=== PATIENT | female | born 1980 | race Caucasian/White ===

== ENCOUNTER → 2024-12-15 | Outpatient (CLI) | payer BC ==
[2024-12-15 10:12] LABS: Partial Thromboplastin Time 25.8 sec (22.0-30.0); Prothrombin Time 10.8 sec (10.0-12.5)
[2024-12-15 15:34] LABS: % Iron Saturation 19.45 (12.00-45.00); ALT 26 U/L (8-44); AST 25 U/L (13-35); Albumin 4.1 g/dL (3.8-4.9); Albumin/Globulin Ratio 1.46 Ratio (1.60-3.17); Alkaline Phosphatase 79 U/L (41-126); Blood Urea Nitrogen 12.8 mg/dL (9.0-27.0); Calcium 9.4 mg/dL (8.7-10.3); Carbon Dioxide 23.9 mmol/L (21.6-31.8); Chloride 105 mmol/L (96-109); Chol/HDL Ratio 3.42 Ratio; Globulin 2.8 g/dL (1.6-3.3); Glucose 123 mg/dL (70-110); Iron 71 UG/DL (50-170); LDL Cholesterol,Calculated 88.8 mg/dL (0.0-131.0); Phosphorus 3.5 mg/dL (2.4-5.1); Sodium 141 mmol/L (135-145); Total Bilirubin 0.4 mg/dL (0.3-1.2); Total Iron Binding Capacity 365 UG/DL (228-460); Total Protein 6.9 g/dL (6.2-8.2)
[2024-12-15 15:57] LABS: HCT 44.2 % (37.2-46.3); HGB 14.6 g/dL (12.0-15.0); MCH 28.9 pg (27.0-32.0); MCV 87.5 FL (80.0-97.0); Mean Platelet Volume 10.9 FL (9.5-12.2); NRBC Per 100 WBC 0 X 10*3/uL (0.00-0.01); Platelet Count 397 X 10*3/uL (140-440); RBC 5.05 X 10*6/uL (4.10-5.20); RDW 12.9 % (11.5-14.5); WBC 8.61 X 10*3/uL (4.50-10.00)
[2024-12-15 17:09] LABS: Prealbumin 18.4 mg/dL (18.0-42.0)
[2024-12-15 18:42] LABS: Urine Alcohol Negative (Negative); Urine Barbiturate Negative (Negative); Urine Cocaine Negative (Negative); Urine Methadone Negative (Negative); Urine Opiates Negative (Negative); Urine Phencyclidine Negative (Negative)
[2024-12-16 12:13] LABS: Zinc, Serum 75 ug/dL (60-130)
[2024-12-17 07:29] LABS: Vit B1(Thiamine) 73 ug/L (38-122)
== END | disposition home or self-care (01) ==
LOC: LABWHC1 09:11
PROVIDERS: ATTEND Surgery Plastic and Reconstructive Surgery
DX: E55.9 Vitamin D deficiency, unspecified (principal); E89.1 Postprocedural hypoinsulinemia; D50.8 Other iron deficiency anemias; E66.01 Morbid (severe) obesity due to excess calories; E44.0 Moderate protein-calorie malnutrition; E45 Retarded development following protein-calorie malnutrition; K74.1 Hepatic sclerosis; D50.9 Iron deficiency anemia, unspecified; N19 Unspecified kidney failure; K50.90 Crohn's disease, unspecified, without complications; T56.894A Toxic effect of other metals, undetermined, initial encounter; Z68.42 Body mass index [BMI] 45.0-49.9, adult
CPT/HCPCS: 36415; 80053; 80061; 80306; 80323; 82306; 82525; 82607; 82728; 82746; 83036; 83540; 83550; 83735; 83970; 84100; 84134; 84255; 84425; 84443; 84590; 84630; 85027; 85610; 85730; 93005

== ENCOUNTER 2024-12-27 09:57 | Day surgery (SDC) | payer BC ==
--- NOTE | 2024-12-27 08:08 | P.GSHP ---
History of Present Illness H&P Date: 12/27/24 CHIEF COMPLAINT: GERD and colon screen HISTORY OF PRESENT ILLNESS: The patient is a 44-year-old female who presents with gastroesophageal reflux disease and need for colon screen. Upper and lower endoscopy were offered for further evaluation and management. PAST MEDICAL HISTORY: Please see list. PAST SURGICAL HISTORY: Please see list. MEDICATIONS: Please see list. ALLERGIES: Please see list. SOCIAL HISTORY: No illicit drug use FAMILY HISTORY: No reports of Crohn disease or ulcerative colitis. REVIEW OF ORGAN SYSTEMS: CONSTITUTIONAL: No reports of fevers or chills. GI: Denies any blood in stools or constipation. PHYSICAL EXAM: VITAL SIGNS: Stable GENERAL: Well-developed pleasant in no acute distress. HEENT: No scleral icterus. Extraocular movements grossly intact. Moist buccal mucosa. NECK: Supple without lymphadenopathy. CHEST: Unlabored respirations. Equal bilateral excursions. CARDIOVASCULAR: Regular rate and rhythm. Distal 2+ pulses. ABDOMEN: Soft, nondistended. MUSCULOSKELETAL: No clubbing, cyanosis, or edema. ASSESSMENT: 1. Gastroesophageal reflux disease 2. Colon screen. PLAN: 1. Recommend proceeding with an upper and lower endoscopy Past Medical History Past Medical History: Asthma, Diabetes Mellitus, Fibromyalgia, GERD/Reflux, Musculoskeletal Disorder, Osteoarthritis (OA) Additional Past Medical History / Comment(s): PCOS, diet controlled diabetes, vision issues rt eye. mucousy stools recently, intermittent sciatic pain History of Any Multi-Drug Resistant Organisms: None Reported Past Surgical History: Section, Uterine Ablation Additional Past Surgical History / Comment(s): c-sectionx2, Uterine ablationx3, D&Cx2 Past Anesthesia/Blood Transfusion Reactions: No Reported Reaction Smoking Status: Former smoker - Past Family History Mother Family Medical History: Cancer Additional Family Medical History / Comment(s): breast cax2 with mastectomy, lymphatic, uterine and cervical and melanoma, stroke, cerebral palsy Sister(s) Family Medical History: Diabetes Mellitus, Thyroid Disorder Father Additional Family Medical History / Comment(s): Polio as child-muscle disorder from Medications and Allergies Home Medications Medication Instructions Recorded Confirmed Type Ergocalciferol [Vitamin D2 (1250 50,000 unit PO WEEKLY 12/23/24 12/24/24 History Mcg = 13108 Iu)] Multivitamins, Thera [Multivitamin 1 tab PO DAILY 12/24/24 12/24/24 History (formulary)] Allergies Allergy/AdvReac Type Severity Reaction Status Date / Time bee venom protein (honey bee) Allergy Anaphylaxis Verified 12/24/24 10:06 diphenhydramine Allergy Rash/Hives Verified 12/24/24 10:06 [From Triaminic Allergy] peach Allergy Anaphylaxis Verified 12/24/24 10:06
[2024-12-27 10:23] VITALS: TEMP 97.3
[2024-12-27] MEDS: LACTATED RINGERS 1,000 ML IV SCH (10:38)
[2024-12-27] MEDS: IV FLUID CONTINUATION 1,000 ML IV ONE ×2 (10:40→10:53)
[2024-12-27 10:41] LABS: Glucose,Whole Blood 132 mg/dL (70-110)
[2024-12-27] MEDS ORDERED: LIDOCAINE 2% (PF) 20 MG/ML 5 ML VIAL ONE (10:53)
[2024-12-27] MEDS ORDERED: PROPOFOL 10 MG/ML 20 ML VIAL IV ONE (10:53)
--- NOTE | 2024-12-27 11:29 | P.PCN ---
Date of Procedure: 12/27/24 Description of Procedure: PREOPERATIVE DIAGNOSIS: Gastroesophageal reflux disease. Morbid obesity. POSTOPERATIVE DIAGNOSIS: Gastroesophageal reflux disease. Morbid obesity. Gastritis. OPERATION: Esophagogastroduodenoscopy with cold forceps biopsies along esophagus, antrum and duodenum SURGEON: Dominga Rizvi MD ANESTHESIA: MAC. INDICATIONS: The patient is a 44-year-old female who presents with reflux disease. Benefits and risks of the procedure were described. Informed consent was obtained. DESCRIPTION: The patient was brought into the endoscopy suite and laid in the left lateral decubitus position. An Olympus gastroscope was passed along the posterior oropharynx down to the distal esophagus where the squamocolumnar junction was encountered at 40 cm from the incisors. The stomach was entered and no bile reflux was found. Additional findings are listed below. Biopsies with cold forceps were obtained of the antrum. The first through third portion of the duodenum was examined. Retroflexion of the scope confirmed Hill grade 2 lower esophageal valve. The squamocolumnar junction demonstrated LA grade B erosive esophagitis. The stomach was desufflated. The patient tolerated the procedure well. FINDINGS: Squamocolumnar junction 40 cm from the incisors. Diaphragmatic hiatus at 40 cm. Hill grade 4 lower esophageal valve. LA grade B erosive esophagitis. Biopsies obtained Biopsies obtained of the duodenum. Chronic gastritis with biopsies obtained. RECOMMENDATIONS: Upper endoscopy as needed.
--- NOTE | 2024-12-27 11:32 | P.PCN ---
Date of Procedure: 12/27/24 Description of Procedure: PREOPERATIVE DIAGNOSIS: Colonoscopy screening. POSTOPERATIVE DIAGNOSIS: Colonoscopy screening. OPERATION: Colonoscopy to the cecum, ileocecal valve and appendiceal orifice. SURGEON: Dominga Rizvi MD. ANESTHESIA: MAC. INDICATIONS: The patient is a 44-year-old female who presents for colonoscopy screening. Benefits and risks were described and informed consent was obtained. DESCRIPTION OF PROCEDURE: The patient had undergone Golytely prep. The patient had been brought into the operating room and laid in the left lateral decubitus position. After adequate intravenous sedation, the rectum was examined with 2% lidocaine jelly. No external hemorrhoids were encountered. The rectal tone was within normal limits. No lesions were palpated in the rectal vault. An Olympus colonoscope was advanced until the cecum, ileocecal valve and appendiceal orifice were clearly viewed. The prep was excellent. No scattered diverticulosis was encountered. No colonic polyps were found. No evidence of focal colitis was found. Retroflexion of the scope demonstrated grade 1 internal hemorrhoids without active bleeding or inflammation. The colon was desufflated. The patient had tolerated the procedure well. Withdrawal time was over 6 minutes. FINDINGS: Aronchick preparation quality scale 1 (1-5) Internal hemorrhoids, grade 1 No external prolapsed hemorrhoids. No arteriovenous malformations. No adenomatous polyps. No focal colitis. No sigmoid diverticulosis RECOMMENDATIONS: Lower endoscopy in 10 years, 2034 Plan - Discharge Summary Discharge Rx Participant: No New Discharge Prescriptions: Continue Ergocalciferol [Vitamin D2 (1250 Mcg = 55948 Iu)] 50,000 unit PO WEEKLY Multivitamins, Thera [Multivitamin (formulary)] 1 tab PO DAILY Discharge Medication List Ergocalciferol [Vitamin D2 (1250 Mcg = 95540 Iu)] 50,000 unit PO WEEKLY 12/23/24 [History] Multivitamins, Thera [Multivitamin (formulary)] 1 tab PO DAILY 12/24/24 [History] [place] [facility]Ref[place] [facility] [place] [place] [place] 01/12/25 3:00 pm Patient Instructions/Handouts: *Surgery [facility] - (Anesthesia) Discharge Instructions Outpatient Surgery, Moderate Sedation (GEN), Gastritis (DC) Discharge Disposition: HOME SELF-CARE
[2024-12-27 11:55] VITALS: BP 122/82; PULSE 92; RESP 18
== END 2024-12-27 12:15 | disposition home or self-care (01) ==
LOC: ORWHC2ENDO 09:57
PROVIDERS: ATTEND Surgery Plastic and Reconstructive Surgery
DX: Z12.11 Encounter for screening for malignant neoplasm of colon (principal); K29.50 Unspecified chronic gastritis without bleeding; K21.00 Gastro-esophageal reflux disease with esophagitis, without bleeding; K64.0 First degree hemorrhoids; J45.909 Unspecified asthma, uncomplicated; E11.9 Type 2 diabetes mellitus without complications; E28.2 Polycystic ovarian syndrome; E66.01 Morbid (severe) obesity due to excess calories; M79.7 Fibromyalgia; M19.90 Unspecified osteoarthritis, unspecified site; Z68.41 Body mass index [BMI] 40.0-44.9, adult; Z87.891 Personal history of nicotine dependence; Z82.3 Family history of stroke; Z83.3 Family history of diabetes mellitus; Z83.49 Family history of other endocrine, nutritional and metabolic diseases; Z91.030 Bee allergy status; Z79.51 Long term (current) use of inhaled steroids; Z79.899 Other long term (current) drug therapy
CPT/HCPCS: 81025; 88305; 45378; 43239; J2704; J2003

== ENCOUNTER → 2025-01-24 | Outpatient (CLI) | payer BC ==
[2025-01-24 13:29] VITALS: BMI 43.6
== END ==
LOC: BARWHC3 12:46
PROVIDERS: ATTEND Surgery Plastic and Reconstructive Surgery
DX: E66.01 Morbid (severe) obesity due to excess calories (principal); Z71.3 Dietary counseling and surveillance; Z68.41 Body mass index [BMI] 40.0-44.9, adult; Z91.030 Bee allergy status; Z91.018 Allergy to other foods; Z88.8 Allergy status to other drugs, medicaments and biological substances
CPT/HCPCS: 97804

== ENCOUNTER → 2025-02-09 | Outpatient (CLI) | payer BC ==
[2025-02-09 15:31] LABS: Basophils # (A) 0.05 X 10*3/uL (0.00-0.10); Basophils % (A) 0.6 %; Eosinophils # (A) 0.13 X 10*3/uL (0.04-0.35); Eosinophils % (A) 1.6 %; HCT 44.6 % (37.2-46.3); HGB 15.2 g/dL (12.0-15.0); Lymphocytes # (A) 2.81 X 10*3/uL (0.90-5.00); Lymphocytes % (A) 34.7 %; MCH 29.5 pg (27.0-32.0); MCHC 34.1 g/dL (32.0-37.0); MCV 86.4 FL (80.0-97.0); Mean Platelet Volume 10.3 FL (9.5-12.2); Monocytes # (A) 0.72 X 10*3/uL (0.20-1.00); Monocytes % (A) 8.9 %; NRBC Per 100 WBC 0 X 10*3/uL (0.00-0.01); Neutrophils # (A) 4.37 X 10*3/uL (1.80-7.70); Platelet Count 392 X 10*3/uL (140-440); RBC 5.16 X 10*6/uL (4.10-5.20); RDW 12.5 % (11.5-14.5)
[2025-02-09 15:41] LABS: ALT 29 U/L (8-44); AST 29 U/L (13-35); Albumin/Globulin Ratio 1.48 Ratio (1.60-3.17); Alkaline Phosphatase 73 U/L (41-126); Blood Urea Nitrogen 8.3 mg/dL (9.0-27.0); Calcium 9.4 mg/dL (8.7-10.3); Carbon Dioxide 20.2 mmol/L (21.6-31.8); Chloride 105 mmol/L (96-109); Globulin 2.7 g/dL (1.6-3.3); Glucose 151 mg/dL (70-110); Potassium 3.7 mmol/L (3.5-5.5); Sodium 138 mmol/L (135-145); Total Bilirubin 0.4 mg/dL (0.3-1.2); Total Protein 6.7 g/dL (6.2-8.2)
== END | disposition home or self-care (01) ==
LOC: LABWHC1 11:05
PROVIDERS: ATTEND Surgery Plastic and Reconstructive Surgery
DX: Z01.812 Encounter for preprocedural laboratory examination (principal)
CPT/HCPCS: 36415; 80053; 85025

== ENCOUNTER 2025-02-14 08:48 | Inpatient (IN) | payer BC ==
--- NOTE | 2025-02-13 10:15 | P.PN ---
Progress Note - Text Progress Note Date: 02/13/25 Patient contacted due to cancellation of previous case. Patient asked to arrive at the hospital for 8:30 AM instead of 1030
[~2025-02-14 08:48] MED LIST: HEPARIN SODIUM,PORCINE 5,000 UNIT/ML 1 ML VIAL SQ PRN; ONDANSETRON 4 MG/2 ML VIAL IVP PRN
[2025-02-14] MEDS ORDERED: HYDROmorphone 0.5 MG/0.5 ML SYRINGE IVP PRN (08:52)
[2025-02-14] MEDS ORDERED: LIDOCAINE 1% (10MG/ML) FOR IV START INTRADERMA PRN (08:52)
--- NOTE | 2025-02-14 09:45 | P.GSHP ---
History of Present Illness H&P Date: 02/14/25 CHIEF COMPLAINT: Morbid obesity HISTORY OF PRESENT ILLNESS: Ashley Patel is a 44-year-old female who comes with lifelong morbid obesity. She has completed bariatric risk assessment, medical risk assessment and dietary counseling for bariatric procedures. As result of morbid obesity she developed diabetes type 2, gastroesophageal reflux disease, osteoarthritis and polycystic ovarian syndrome. She is looking into the gastric bypass. At height of 5 feet 8.5 inches, her ideal body weight is 163 pounds. She comes in 292 pounds. Her body mass index is 43.8. She is 129 pounds overweight. PAST MEDICAL HISTORY: 1. Morbid obesity due to excess calories 2. Body mass index of 43.8, initial 3. Osteoarthritis of the knees. 4. Osteoarthritis of the lower back. 5. Polycystic ovarian syndrome 6. Diabetes type 2 7. Fibromyalgia 8. Gastroesophageal reflux disease PAST SURGICAL HISTORY: 1. section 2. Uterine ablation 3. Dilatation curettage HOME MEDICATIONS: ALLERGIES: SOCIAL HISTORY: Past tobacco use. FAMILY HISTORY: No family history of ulcerative colitis disease or Crohn's disease. Family history of morbid obesity. No lupus in the family. No reports of stomach or esophageal cancer. Cousin with colon cancer. All family members with cancer. REVIEW OF ORGAN SYSTEMS: CONSTITUTIONAL: At height of 5 feet 8.5 inches, her ideal body weight is 163 pounds. She comes in 292 pounds. Her body mass index is 43.8. She is 129 pounds overweight. HEENT: Denies any active troubles with vision or hearing. Denies troubles with swallowing. ENDOCRINE: Has diabetes. No hypothyroidism. CARDIOVASCULAR: Denies reports of palpitations or heart attacks or chest pain. Denies hypertensive heart disease. RESPIRATORY: Has daytime somnolence. Denies asthma. Denies chronic obstructive pulmonary disease. GASTROINTESTINAL: Denies any bright red blood per rectum. No diarrhea. No constipation. Has gastroesophageal reflux disease. GENITOURINARY: Denies bladder urgency. No recent blood in urine MUSCULOSKELETAL: Has lower back pain and joint pain. NEURO: No headaches. No seizure disorders. Has neuropathy. PSYCH: Denies depression. No suicidal ideation. RHEUMATOLOGIC: No lupus. No rheumatoid arthritis. HEMATOLOGIC: Denies any abnormal bleeding or bruising. SKIN: No rash. No skin cancer. PHYSICAL EXAM: VITAL SIGNS: Height 5 foot 8.5 inches, weight 292 pounds. BMI 43.8 GENERAL: Well-developed in no acute distress. HEENT: No scleral icterus. Extraocular movements grossly intact. Hears conversational speech. No nasal drainage. NECK: Supple without lymphadenopathy. CHEST: Nonlabored respirations with equal bilateral excursions. CARDIOVASCULAR: Regular rate and regular rhythm. Distal 2+ pulses. ABDOMEN: Obese, soft, nontender, nondistended. MUSCULOSKELETAL: No clubbing, cyanosis. NEURO: No focal or lateralizing signs. Cranial nerves 2 through 12 grossly within normal limits. PSYCH: Appropriate affect. Alert and oriented to person, place and time. SKIN: Good skin turgor. Well perfused. ASSESSMENT: 1. Morbid obesity due to excess calories 2. Body mass index of 43.8, initial 3. Osteoarthritis of the knees. 4. Osteoarthritis of the lower back. 5. Polycystic ovarian syndrome 6. Diabetes type 2 7. Fibromyalgia 8. Gastroesophageal reflux disease PLAN: 1. Bariatric options between a sleeve, band and a Liz-en-Y gastric bypass were reviewed in detail. The patient elected for gastric bypass. Robotic assisted approach described. 2. The [place] [facility] Data was also reviewed with benefits and risks as described. 3. An 8 page second-generation bariatric consent form was reviewed in detail including potential of bleeding, infection, leaks, adequate weight loss, nutritional deficiencies which the patient demonstrated understanding of the risks. 4. A 2 week high-protein low caloric 800 kcal diet described to address hepatomegaly. 5. Preoperative labs including complete metabolic panel and CBC with type and screen recommended. 6. DVT prophylaxis per [place] [facility]. 7. Antibiotic prophylaxis. 8. Inpatient hospitalization anticipated for more than 2 nights. 9. All questions and concerns were addressed with the patient. 10. The patient is at elevated risk for perioperative complications with sleep apnea and hypertensive heart disease. 11. Overall, patient has expressed understanding of bariatric care including postoperative diet and commitment of lifestyle. Patient should benefit from surgical intervention for correction of morbid obesity. Past Medical History Past Medical History: Asthma, Diabetes Mellitus, Fibromyalgia, GERD/Reflux, Musculoskeletal Disorder, Osteoarthritis (OA) Additional Past Medical History / Comment(s): PCOS, diet controlled diabetes, vision issues rt eye. intermittent sciatic pain, History of Any Multi-Drug Resistant Organisms: None Reported Past Surgical History: Section, Uterine Ablation Additional Past Surgical History / Comment(s): c-sectionx2, Uterine ablationx3, D&Cx2, COLONOSCOPY/EGD Past Anesthesia/Blood Transfusion Reactions: No Reported Reaction Smoking Status: Former smoker - Past Family History Mother Family Medical History: Cancer Additional Family Medical History / Comment(s): breast cax2 with mastectomy, lymphatic, uterine and cervical and melanoma, stroke, cerebral palsy Sister(s) Family Medical History: Diabetes Mellitus, Thyroid Disorder Father Additional Family Medical History / Comment(s): Polio as child-muscle disorder from Medications and Allergies Home Medications Medication Instructions Recorded Confirmed Type Ergocalciferol [Vitamin D2 (1250 50,000 unit PO SA 12/23/24 02/08/25 History Mcg = 22003 Iu)] Multivitamins, Thera [Multivitamin 1 tab PO DAILY 12/24/24 02/08/25 History (formulary)] Allergies Allergy/AdvReac Type Severity Reaction Status Date / Time bee venom protein (honey bee) Allergy Anaphylaxis Verified 02/08/25 10:18 diphenhydramine Allergy Rash/Hives Verified 02/08/25 10:18 [From Triaminic Allergy] peach Allergy Anaphylaxis Verified 02/08/25 10:18
[2025-02-14 11:00] LABS: Glucose,Whole Blood 98 mg/dL (70-110)
[2025-02-14] MEDS: IV FLUID CONTINUATION 1,000 ML IV ONE (11:00)
[2025-02-14] MEDS: SODIUM CHLORIDE 0.9% 1,000 ML IV ONE (11:01)
[2025-02-14] MEDS: ALVIMOPAN 12 MG CAPSULE PO PRN (11:02)
[2025-02-14] MEDS: ACETAMINOPHEN TAB 500 MG TAB PO PRN (11:02)
[2025-02-14] MEDS: DEXAMETHASONE SOD PHOSPHATE 4 MG/ML 1 ML VIAL IV ONE (11:03)
[2025-02-14] MEDS: CHLORHEXIDINE GLUCONATE 15 ML CUP MUCOUS MEM STA (11:04)
[2025-02-14] MEDS: ONDANSETRON 4 MG/2 ML VIAL IVP ONE (11:04)
[2025-02-14] MEDS: PANTOPRAZOLE 40 MG/10 ML VIAL IVP STA (11:07)
[2025-02-14] MEDS: fentaNYL (PF) 50 MCG/ML 2 ML AMP IVP PRN (11:48)
[2025-02-14] MEDS: MIDAZOLAM 2 MG/2 ML VIAL IV PRN (11:48)
[2025-02-14] MEDS: ENOXAPARIN 30 MG/0.3 ML SYRINGE SQ STA (12:08)
--- NOTE | 2025-02-14 12:13 | P.ANPRN ---
Procedure Note - Anesthesia - Nerve Block Performed Bilateral Erector Spinae Single Time Out Performed: Yes Date of Procedure: 02/14/25 Procedure Start Time: 11:48 Procedure Stop Time: 11:55 Location of Patient: PreOp Indication: Acute Post-Operative Pain, Requested by Surgeon Sedation Type: Sedate with meaningful contact maintained Preparation: Sterile Prep Position: Prone Needle Types: Pajunk Needle Gauge: 21 Ultrasound used to visualize needle placement: Yes Ultrasound used to observe medication spread: Yes Injectate: 0.5% Ropivacaine (see comment for volume) (20 mL +4 mL gram dexamethasone +10 mL of normal saline per side) Blood Aspirated: No Pain Paresthesia on Injection Noted: No Resistance on Injection: Normal Image Stored and Saved: Yes Events: Uneventful and Well Tolerated
[2025-02-14] MEDS ORDERED: diphenhydrAMINE 50 MG/ML 1 ML VIAL ONE (12:56)
[2025-02-14] MEDS ORDERED: HYDROmorphone (PF) 1 MG/ML ONE (12:56)
[2025-02-14] MEDS ORDERED: MIDAZOLAM 2 MG/2 ML VIAL ONE (12:56)
[2025-02-14] MEDS ORDERED: SODIUM CHLORIDE 0.9% (PF) 10 ML VIAL ONE (12:56)
[2025-02-14] MEDS ORDERED: SUCCINYLCHOLINE CHLORIDE 200 MG/10 ML VIAL IV ONE (12:56)
[2025-02-14] MEDS ORDERED: GLYCOPYRROLATE 0.2 MG/ML 2 ML VIAL ONE (12:56)
[2025-02-14] MEDS ORDERED: fentaNYL (PF) 50 MCG/ML 2 ML AMP ONE (12:56)
[2025-02-14] MEDS ORDERED: DEXAMETHASONE SOD PHOSPHATE 4 MG/ML 1 ML VIAL ONE (12:56)
[2025-02-14] MEDS ORDERED: ROCURONIUM 10 MG/ML (5 ML VIAL) IV ONE (12:56)
[2025-02-14] MEDS ORDERED: ROPIVACAINE 5 MG/ML 30 ML VIAL ONE (12:56)
[2025-02-14] MEDS ORDERED: LIDOCAINE 1% INJ 10MG/ML (20 ML MDV) ONE (12:56)
[2025-02-14] MEDS ORDERED: NEOSTIGMINE 1 MG/ML 10 ML VIAL ONE (12:56)
[2025-02-14] MEDS ORDERED: PROPOFOL 10 MG/ML 20 ML VIAL IV ONE (12:56)
[2025-02-14] MEDS ORDERED: KETAMINE HCL IN 0.9 % NACL 50 MG/5 ML SYRINGE ONE (12:56)
[2025-02-14] MEDS: ceFAZolin 3 GM in SODIUM CHLORIDE 0.9% 100 ML IVPB PRN (13:22)
[2025-02-14] MEDS: LACTATED RINGERS 1,000 ML IV ONE (13:22)
[2025-02-14] MEDS: LIDOCAINE 1%-EPI 1:100,000 20 ML VIAL SQ ONE (13:26)
[2025-02-14 16:26] LABS: Glucose,Whole Blood 205 mg/dL (70-110)
[2025-02-14] MEDS ORDERED: NALOXONE 0.4 MG/ML 1 ML VIAL IV PRN ×2 (16:43→16:51)
[2025-02-14] MEDS ORDERED: HYOSCYAMINE ORAL DROPS 1.875 MG/15 ML BOTTLE PO PRN (16:43)
[2025-02-14] MEDS ORDERED: HYDROmorphone 1 MG/ML 1 ML SYRINGE IVP PRN (16:43)
--- NOTE | 2025-02-14 16:50 | P.OP ---
Date of Procedure: 02/14/25 Description of Procedure: SURGEON: JOSE ALFREDO RIGGS MD PREOPERATIVE DIAGNOSES: 1. Morbid obesity due to excess calories 2. Body mass index of 43.8, initial 3. Osteoarthritis of the knees. 4. Osteoarthritis of the lower back. 5. Polycystic ovarian syndrome 6. Diabetes type 2 7. Fibromyalgia 8. Gastroesophageal reflux disease POSTOPERATIVE DIAGNOSES: 1. Morbid obesity due to excess calories 2. Body mass index of 43.8, initial 3. Osteoarthritis of the knees. 4. Osteoarthritis of the lower back. 5. Polycystic ovarian syndrome 6. Diabetes type 2 7. Fibromyalgia 8. Gastroesophageal reflux disease 9. Pelvic adhesions OPERATION: 1. Robotic assisted da Amrita Xi laparoscopic Sacha-en-Y gastric bypass, 100 cm antecolic antegastric Sacha limb, with 25 mm EEA. 2. Robotic assisted da Amrita Xi laparoscopic lysis of pelvic adhesions 3. Intraoperative esophagogastrojejunoscopy. ANESTHESIA: GETA and local ESTIMATED BLOOD LOSS: 20 mL SPECIMENS REMOVED: None. COMPLICATIONS: NONE. Operative Findings: 1. Biliopancreatic limb 60 cm 2. Bypass performed using 100 cm sacha limb secondary to avoid increased tension at 150 cm. 3. Jejunojejunostomy and Guardado's defects closed using 2-0 V-LOC, green 4. Leak test negative with gastrojejunal anastomosis patent with mild bleeding controlled with irrigation 5. Reinforcement sutures were placed along the gastrojejunal anastomosis at 3:00 9:00 and 12:00. INDICATIONS:Ashley Patel is a 44-year-old female who comes with lifelong morbid obesity. She has completed bariatric risk assessment, medical risk assessment and dietary counseling for bariatric procedures. As result of morbid obesity she developed diabetes type 2, gastroesophageal reflux disease, osteoarthritis and polycystic ovarian syndrome. She is looking into the gastric bypass. At height of 5 feet 8.5 inches, her ideal body weight is 163 pounds. She comes in 292 pounds. Her body mass index is 43.8. She is 129 pounds overweight. A second-generation bariatric consent form was described in detail including the possibility of protein malnutrition, leaks, gastrojejunal stricture, venous thrombosis, need for further surgery for which she demonstrated understanding. Benefits and risks of the procedure were described at length. Informed consent was obtained. DESCRIPTION: The patient was brought into the operating room theater. She was placed supine. She had received heparin subcutaneously for DVT prophylaxis. Additionally Peridex oral solution as an oral decontaminant was placed per anesthesia. After general induction, the abdomen was prepped and draped in standard sterile fashion. Ioban draping was placed along the abdomen. Lim catheter was avoided. A robotic da Amrita Xi system was prepped and primed. Incisions were proposed at 15 cm from the xiphoid. Proposed port sites were marked with indelible marker along the anterior axillary line bilaterally, mid clavicular line bilaterally with each port marked 10 cm from each other. The robotic stapler port was marked for the right midclavicular line including along the left midclavicular line. A 5 mm 0 degrees laparoscopic trocar entry was performed along the left upper quadrant. The abdomen was insufflated to 15 mmHg pressure, which she tolerated well. Diagnostic laparoscopy demonstrated no injury to bowel, viscera, or mesentery. The liver was consistent with her 2-week protein diet without hepatomegaly. Additionally, pelvic adhesions of omentum to the pelvis was i dentified and lysed with vessel sealer later in the case An 8 mm camera port was placed left lateral to the umbilicus at the epigastrium, 15 cm distal to the xiphoid. Next, 12-mm robot stapler port was placed along the right mid abdomen. An 12 mm port was exchanged along the left upper quadrant. An 8 mm port was placed on the left lateral abdominal wall under direct visualization Please note that the ports were placed 18 to 20 cm away from the target anatomy of the stomach. Care was taken to check that each robotic arm was safely away from collision with the bed or the patient. At the epigastrium, a medium sized Saleem liver retractor was placed under direct visualization with the Iron Lending Advisor placed under the right shoulder of the patient. The patient was repositioned in reverse Trendelenburg position at 25-degrees after lowering the bed. The robot was docked over the patient. Using grasper for arm 3, a grasper for arm 1, including vessel sealer for arm 4, the robotic system was docked and primed as described. Instruments were interchanged by the print shop assistant including endoscissors, the needle farm truck driver, and stapler. I had sat at the console. Next, the transverse mesocolon was reflected into the upper abdomen for the jejunojejunostomy portion of the case. The ligament of Treitz was identified and measured 60 cm antegrade and marked using 3-0 Silk. The jejunum was divided at the 60 cm point using 60-mm white loads above the suture measurement. The biliopancreatic limb was held in place. The Sacha limb was measured 100 cm in an antegrade fashion to avoid tension along the proposed gastrojejunal anastomosis. At 100 cm along the anti-mesenteric border of the Sacha limb, a jejunojejunostomy was proposed whereby enterotomies were created along the biliopancreatic limb including the Sacha limb using a Bovie cautery. A stay suture of 3-0 Slik was placed to align and create the anastomosis. The enterotomies along the anti- mesenteric borders were created followed by unidirectional fire from the patient's right side using 60 mm white loads Pan[employer] technology robotic stapler. The jejunojejunostomy was found to be hemostatic. The enterotomy was closed after horizontal mattress stitch of 3-0 silk used to elevate the enterotomy followed by closure with the robotic stapler blue load. The jejunal limb was temporarily tacked along the left upper quadrant. Attention was now brought to the creation of the gastrojejunostomy. Along the lesser curvature of the stomach, dissection was made along the retrogastric space to allow first firing of the robotic staple. Several green loads and blue loads of 60 mm staplers were used to divide the stomach to create the gastric pouch. The patient was then prepared for placement of a Orvil. A 25-mm Orvil was selec darlene for placement by the nurse in store banker. The Orvil tubing was placed anterior to the staple line of the gastric pouch and brought out through the left inferior lateral port. I re-scrubbed into the case. The robotic arms were temporarily undocked. The Orvil was then carefully and successfully navigated with the help of the nurse in store banker into the gastric pouch. The sutures were identified and divided. The tubing was from the 25 mm anvil. As the Orvil had been placed, the jejunal limb was brought proximally into the upper abdomen. No torsion was found upon the Sacha limb. No tension was identified as the limb was brought along the upper abdomen. The jejunal limb was previously opened using hook cautery. The 25-mm EEA stapler was brought through the left anterior lateral port site from the left side. The EEA stapler was brought through the open jejunal limb and its needle was deployed at the antimesenteric border where the anvil were mated for approximately 1 minute upon firing. The stapler was removed after irrigating the shaft of the instrument with warm normal saline. Donuts were found to be intact and on both sides. The da Amrita Xi robot arms were then re-docked. I sat at the console. The open jejunal limb defect was closed using 60 mm blue loads after releasing any tension from the blind jejunal limb. No redundancy was present for jejunal limb. The transverse mesocolon was divided for the sacha limb. Reinforcement sutures were placed along the gastrojejunal anastomosis and placed along the 3:00, 9:00, 12:00 o'clock position using 3-0 Vicryl. The Guardado and jejunojejunostomy mesenteric defect was closed using 2-0 V LOC, green. I then went to the head of the bed to perform the esophagogastrojejunoscopy and a leak test. An Olympus gastroscope was passed alongthe posterior oropharynx which was unremarkable for any injury to the vocal cords. The scope was passed down to the proximal portion of the pouch, whereby active bleeding was encountered. Active bleeding was addressed using flushes of 40 cc normal saline. Excellent visualization of the gastrojejunostomy anastomosis, including the Sacha limb was encountered with endoscopic image obtained. The anastomosis was found to be patent without active bleeding. Residual blood was suctioned from the gastric pouch. The gastrointestinal tract was desufflated. No evidence of intraoperative leak was encountered as the gastric pouch and anastomosis were submerged under normal saline solution. The robot was then undocked. I then went back to the bedside of the patient, whereby with coordinated effort of the print shop assistant, irrigation was aspirated from the upper abdominal cavity. Tisseel was placed circumferentially over the anastomosis of the gastrojejunostomy. The fascial defect of the EEA stapler was closed using Suman Maza and 0 Vicryl. All instruments and pneumoperitoneum were evacuated from the abdominal cavity. The port correlating with the EEA stapler device was cleansed with normal saline solution and hydrogen peroxide. The rest of incisions were reapproximated using 4-0 Monocryl in an interrupted subcuticular fashion. Local anesthetic was infiltrated along the skin for postop analgesia. Liquid glue was applied to the skin. OptiFoam dressing was placed along the EEA stapler site. Abdominal binder was placed. At the end of the procedure, needle, sponge and instrument count had been verified correct by the surgical scheduler. The patient had tolerated the procedure well and was extubated and taken to the postanesthesia unit in stable condition.
--- NOTE | 2025-02-14 16:55 | P.PN ---
Progress Note - Text Progress Note Date: 02/14/25 Immediately postoperatively, patient reports absolutely no emesis. Will continue Protonix 40 mg twice daily to address increased risk of hematemesis and GI bleed.
[2025-02-14] MEDS: LACTATED RINGERS 1,000 ML IV SCH (17:56)
[2025-02-14] MEDS: ACETAMINOPHEN IV (For NPO) 1,000 MG in EMPTY BAG 1 BAG IVPB SCH (18:42)
[2025-02-14] MEDS: 0.9% NACL WITH KCL 20 MEQ/L 1,000 ML IV SCH (18:44)
[2025-02-14] MEDS: METOCLOPRAMIDE 5 MG/ML 2 ML VIAL IVP SCH (18:44)
[2025-02-14] MEDS: ONDANSETRON 4 MG/2 ML VIAL IVP SCH (18:44)
[2025-02-14] MEDS: fentaNYL PCA 500 MCG/50 ML BAG IV SCH (20:27)
[2025-02-14] MEDS: ALBUTEROL NEBULIZED 2.5 MG/3 ML INHALATION SCH (20:35)
[2025-02-14] MEDS: PANTOPRAZOLE 40 MG/10 ML VIAL IV SCH (20:58)
[2025-02-14] MEDS: SIMETHICONE 40 MG/0.6 ML DROPS 2,000 MG/30 ML BOTTLE PO SCH (20:59)
[2025-02-14] MEDS: MAGNESIUM SULFATE-D5W PMX 1 GM in DEXTROSE/WATER 1 100ML.BAG IVPB SCH (23:15)
[2025-02-15] MEDS: ceFAZolin 2 GM in DEXTROSE 5% IN WATER 50 ML IVPB SCH (00:50)
[2025-02-15 06:09] LABS: Glucose,Whole Blood 139 mg/dL (70-110)
[2025-02-15 07:48] VITALS: BP 98/62; PULSE 66; RESP 17; TEMP 98.6
[2025-02-15] MEDS ORDERED: 0.9% NACL WITH KCL 20 MEQ/L 1,000 ML IV SCH (08:00)
[2025-02-15 08:18] LABS: Basophils # (A) 0.02 X 10*3/uL (0.00-0.10); Basophils % (A) 0.1 %; Eosinophils # (A) 0 X 10*3/uL (0.04-0.35); Eosinophils % (A) 0 %; HCT 37.9 % (37.2-46.3); HGB 12.7 g/dL (12.0-15.0); Lymphocytes # (A) 0.92 X 10*3/uL (0.90-5.00); Lymphocytes % (A) 6.3 %; MCH 29.1 pg (27.0-32.0); MCHC 33.5 g/dL (32.0-37.0); MCV 86.9 FL (80.0-97.0); Mean Platelet Volume 10.9 FL (9.5-12.2); Monocytes # (A) 1.42 X 10*3/uL (0.20-1.00); Monocytes % (A) 9.7 %; NRBC Per 100 WBC 0 X 10*3/uL (0.00-0.01); Neutrophils # (A) 12.18 X 10*3/uL (1.80-7.70); Neutrophils % (A) 83.4 %; Platelet Count 358 X 10*3/uL (140-440); RBC 4.36 X 10*6/uL (4.10-5.20); RDW 12.5 % (11.5-14.5); WBC 14.62 X 10*3/uL (4.50-10.00)
[2025-02-15 08:49] LABS: Magnesium 2.5 mg/dL (1.5-2.4); Phosphorus 2.8 mg/dL (2.4-5.1)
[2025-02-15 08:50] LABS: Blood Urea Nitrogen 9.7 mg/dL (9.0-27.0); Calcium 8.5 mg/dL (8.7-10.3); Carbon Dioxide 18.7 mmol/L (21.6-31.8); Chloride 107 mmol/L (96-109); Potassium 4.3 mmol/L (3.5-5.5); Sodium 137 mmol/L (135-145)
[2025-02-15] MEDS: ENOXAPARIN 30 MG/0.3 ML SYRINGE SQ SCH (08:54)
--- NOTE | 2025-02-15 09:26 | P.DS ---
Providers Date of admission: 02/14/25 08:48 Expected date of discharge: 02/15/25 Attending physician: Dominga Rizvi Consults: 02/14/25 10:00 Consult Physician Routine Consulting Provider: [facility] Consult Reason/Comments: Abdominal wall block Do you want consulting provider notified?: Yes Primary care physician: [facility] Course: POSTOPERATIVE DIAGNOSES: 1. Morbid obesity due to excess calories 2. Body mass index of 43.8, initial 3. Osteoarthritis of the knees. 4. Osteoarthritis of the lower back. 5. Polycystic ovarian syndrome 6. Diabetes type 2 7. Fibromyalgia 8. Gastroesophageal reflux disease 9. Pelvic adhesions COURSE:Ashley Patel is a 44-year-old female who comes with lifelong morbid obesity. She has completed bariatric risk assessment, medical risk assessment and dietary counseling for bariatric procedures. As result of morbid obesity she developed diabetes type 2, gastroesophageal reflux disease, osteoarthritis and polycystic ovarian syndrome. She is looking into the gastric bypass. She underwent gastric bypass 02/14/2025. Overnight, patient had nausea including headaches which now completely resolved after 4 L fluid bolus yesterday including 2 g of magnesium today. Patient reports all her headache is gone. Nausea is resolved. She is appropriate left upper quadrant incisional pain. Close outpatient follow-up with outpatient esophagram in 24 hours reviewed. All discharge instructions reviewed. Procedures: OPERATION: 1. Robotic assisted da Amrita Xi laparoscopic Sacha-en-Y gastric bypass, 100 cm antecolic antegastric Sacha limb, with 25 mm EEA. 2. Robotic assisted da Amrita Xi laparoscopic lysis of pelvic adhesions 3. Intraoperative esophagogastrojejunoscopy. ANESTHESIA: GETA and local ESTIMATED BLOOD LOSS: 20 mL SPECIMENS REMOVED: None. COMPLICATIONS: NONE. Operative Findings: 1. Biliopancreatic limb 60 cm 2. Bypass performed using 100 cm sacha limb secondary to avoid increased tension at 150 cm. 3. Jejunojejunostomy and Guardado's defects closed using 2-0 V-LOC, green 4. Leak test negative with gastrojejunal anastomosis patent with mild bleeding controlled with irrigation 5. Reinforcement sutures were placed along the gastrojejunal anastomosis at 3:00 9:00 and 12:00. \ Plan - Discharge Summary Discharge Rx Participant: No New Discharge Prescriptions: New bisacodyL [Dulcolax] 5 mg PO DAILY PRN #10 tab PRN Reason: Constipation Omeprazole [PriLOSEC] 40 mg PO DAILY #30 cap Simethicone 40 mg/0.6 ml Drops [Mylicon Drops] 40 mg PO PCHS PRN #30 ml PRN Reason: Gas Acetaminophen Tab [Tylenol Tab] 1,000 mg PO Q6HR PRN #30 tablet PRN Reason: Pain ursodioL [Ursodiol] 300 mg PO BID 30 Days #60 capsule Ondansetron Odt [Zofran Odt] 4 mg PO Q8HR PRN #9 tab PRN Reason: Nausea Discontinued Ergocalciferol [Vitamin D2 (1250 Mcg = 05329 Iu)] 50,000 unit PO SA Multivitamins, Thera [Multivitamin (formulary)] 1 tab PO DAILY Discharge Medication List Acetaminophen Tab [Tylenol Tab] 1,000 mg PO Q6HR PRN #30 tablet 02/14/25 [Rx] Omeprazole [PriLOSEC] 40 mg PO DAILY #30 cap 02/14/25 [Rx] Ondansetron Odt [Zofran Odt] 4 mg PO Q8HR PRN #9 tab 02/14/25 [Rx] Simethicone 40 mg/0.6 ml Drops [Mylicon Drops] 40 mg PO PCHS PRN #30 ml 02/14/25 [Rx] bisacodyL [Dulcolax] 5 mg PO DAILY PRN #10 tab 02/14/25 [Rx] ursodioL [Ursodiol] 300 mg PO BID 30 Days #60 capsule 02/14/25 [Rx] Follow up Appointment(s)/Referral(s): Bariatric [place], [place] [NON-STAFF] - 02/16/25 9:00 am Patient Instructions/Handouts: Nutrition after Bariatric Surgery (GEN), Bowel Management After Bariatric Surgery (DC), Sacha-en-Y Gastric Bypass (GEN) Activity/Diet/Wound Care/Special Instructions: Liquid diet only for 2 weeks until February 28 No lifting over 4 pounds in 4 weeks, March 17February Shower. No soaking in bath tubs 2 weeks, until February 28 Please notify your surgeon if you develop nausea and vomiting including new onset of abdominal pain. Continue to use incentive spirometry to prevent pneumonias. Please continue to ambulate at home to prevent blood clots in legs. Follow-up at the bariatric center. May shower. Dressings to be discontinued by surgeon in the office. Drink 64 oz of fluid daily. Start protein shakes on . Notify bariatric center for temp over 101.0, increased pain, drainage from incisions. No straws or carbonated beverages. Liquid diet only. Sugar content should be less than 6 g to avoid dumping syndrome. Take MOM for constipation. CRUSH, OPEN, OR CUT TABLETS LARGER THAN A SIZE OF A TIC TAC Discharge Disposition: HOME SELF-CARE
[2025-02-15 09:57] VITALS: BMI 40.4
== END 2025-02-15 11:57 | disposition home or self-care (01) | DRG 621 ==
LOC: 2ORMAIN 08:48 → 4SSUR 16:16
PROVIDERS: ADMIT Surgery Plastic and Reconstructive Surgery; ATTEND Surgery Plastic and Reconstructive Surgery
PROC: 0D164ZA Bypass Stomach to Jejunum, Percutaneous Endoscopic Approach (ICD-10-PCS; principal; 2025-02-14 12:15)
PROC: 8E0W4CZ Robotic Assisted Procedure of Trunk Region, Percutaneous Endoscopic Approach (ICD-10-PCS; principal; 2025-02-14 12:15)
PROC: 0DJ08ZZ Inspection of Upper Intestinal Tract, Via Natural or Artificial Opening Endoscopic (ICD-10-PCS; principal; 2025-02-14 12:15)
DX: E66.01 Morbid (severe) obesity due to excess calories (principal); E11.9 Type 2 diabetes mellitus without complications; Z68.41 Body mass index [BMI] 40.0-44.9, adult; J45.909 Unspecified asthma, uncomplicated; E28.2 Polycystic ovarian syndrome; K21.9 Gastro-esophageal reflux disease without esophagitis; K66.0 Peritoneal adhesions (postprocedural) (postinfection); M17.0 Bilateral primary osteoarthritis of knee; M79.7 Fibromyalgia; N73.6 Female pelvic peritoneal adhesions (postinfective); M54.30 Sciatica, unspecified side; R51.9 Headache, unspecified; R11.0 Nausea; Z88.8 Allergy status to other drugs, medicaments and biological substances; Z87.891 Personal history of nicotine dependence
CPT/HCPCS: 64468; 80051; 81025; 82310; 82565; 83735; 84100; 84520; 85025; 94760

== ENCOUNTER → 2025-02-16 | Outpatient (CLI) | payer BC ==
--- NOTE | 2025-02-16 12:14 | FL ---
EXAMINATION TYPE: FL barium swallow DATE OF EXAM: 02/16/2025 CLINICAL INDICATION: Female, 44 years old with history of R13.10 DYSPHAGIA, morbid obesity with recen t Liz-en-Y gastric bypass surgery 2 days earlier. TECHNIQUE: Esophagram is performed utilizing 50 mL of Isovue-370. A total of 29 seconds of fluoroscop ic time was utilized during procedure and 46 images obtained. TOTAL DAP = n/p COMPARISON: CT abdomen and pelvis May 07, 2017. FINDINGS: The patient swallowed contrast without difficulty or delay. Esophageal peristalsis and mo tility are within normal limits. There is good flow of contrast along the diaphragmatic hiatus into remnant stomach and subsequent flow into anastomotic efferent small bowel loop. Patient remains asym ptomatic. There is no evidence of contrast extravasation to suggest leak. IMPRESSION: No evidence of leak or significant obstruction status post recent Liz-en-Y gastric bypas s surgery. [facility], , 02/16/2025 12:11 PM
== END | disposition home or self-care (01) ==
LOC: RADFLMAIN 09:29
PROVIDERS: ATTEND Surgery Plastic and Reconstructive Surgery
DX: R13.10 Dysphagia, unspecified (principal); E66.01 Morbid (severe) obesity due to excess calories; Z98.84 Bariatric surgery status
CPT/HCPCS: 74220; Q9967

== ENCOUNTER → 2025-02-23 | Outpatient (CLI) | payer BC ==
[2025-02-23 15:31] VITALS: BP 117/83; PULSE 78; RESP 16; TEMP 98.1; BMI 38.3
--- NOTE | 2025-02-23 16:05 | P.BASOAP ---
Subjective Progress Note Date: 02/23/25 SHe lost 30 pounds in 1 month. She has dimpling. No infection. She feels well. Use H2O2. She did not have to take laxative. Stool is dark. Water is 48 oz daily. Has gastric bypass. Protein is 65 to 68 grams of protein. She has aversion to sweet tasting foods. She is 1 week out. She is doing well. Highest 364 pounds. Objective - Vital Signs Vital signs: Vital Signs Temp 98.1 F 02/23/25 15:18 Pulse 78 02/23/25 15:18 Resp 16 02/23/25 15:18 BP 117/83 02/23/25 15:18 Pulse Ox FiO2 Intake & Output 02/22/25 02/23/25 02/23/25 18:59 06:59 18:59 Weight 116.12 kg Assessment/Plan Plan: Date: 02/23/25 Initial Weight: 132.477 kg Initial BMI: 43.7 Current Weight: 116.12 kg Current BMI: 38.3 Type of Surgery: Total Volume in Band: Previous Volume: Volume Removed: Volume Added: Band Size:
== END ==
LOC: BARWHC3 14:01
PROVIDERS: ATTEND Surgery Plastic and Reconstructive Surgery
DX: E66.01 Morbid (severe) obesity due to excess calories (principal); Z68.38 Body mass index [BMI] 38.0-38.9, adult; Z91.030 Bee allergy status; Z91.018 Allergy to other foods; Z88.8 Allergy status to other drugs, medicaments and biological substances
CPT/HCPCS: 97802; 99211

== ENCOUNTER → 2025-03-16 | Outpatient (CLI) | payer BC ==
[2025-03-16 14:26] VITALS: BP 116/81; PULSE 83; RESP 16; TEMP 98.2
[2025-03-16 14:42] VITALS: BMI 36.7
--- NOTE | 2025-03-16 14:54 | P.BASOAP ---
Subjective Progress Note Date: 03/16/25 Highest 364 pounds. Lost 23 pounds in 1 month. Lost 100 pounds so far lifetime. She had a gastric bypass. She has watermelon. She is 1 month out. She had emesis.SHe has problems with texture. She has a stricture as food is stuck in her chest. Objective - Vital Signs Vital signs: Vital Signs Temp 98.2 F 03/16/25 14:08 Pulse 83 03/16/25 14:08 Resp 16 03/16/25 14:08 BP 116/81 03/16/25 14:08 Pulse Ox FiO2 Intake & Output 03/15/25 03/16/25 03/16/25 18:59 06:59 18:59 Weight 111.13 kg Assessment/Plan Plan: Date: 03/16/25 Initial Weight: 132.477 kg Initial BMI: Current Weight: 111.13 kg Current BMI: 36.7 Type of Surgery: Liz-en-Y Gastric Bypass Total Volume in Band: Previous Volume: Volume Removed: Volume Added: Band Size:
[2025-03-16 15:41] LABS: Partial Thromboplastin Time 26.7 sec (22.0-30.0); Prothrombin Time 11.5 sec (10.0-12.5)
[2025-03-16 18:16] LABS: HCT 43.4 % (37.2-46.3); HGB 14.5 g/dL (12.0-15.0); MCH 29.3 pg (27.0-32.0); MCHC 33.4 g/dL (32.0-37.0); MCV 87.7 FL (80.0-97.0); Mean Platelet Volume 11.7 FL (9.5-12.2); NRBC Per 100 WBC 0 X 10*3/uL (0.00-0.01); Platelet Count 319 X 10*3/uL (140-440); RBC 4.95 X 10*6/uL (4.10-5.20); RDW 13.4 % (11.5-14.5); WBC 6.79 X 10*3/uL (4.50-10.00)
[2025-03-16 18:58] LABS: % Iron Saturation 19.51 (12.00-45.00); ALT 19 U/L (8-44); AST 25 U/L (13-35); Albumin 4.3 g/dL (3.8-4.9); Albumin/Globulin Ratio 1.59 Ratio (1.60-3.17); Alkaline Phosphatase 86 U/L (41-126); BUN/Creat Ratio 16.67 Ratio (12.00-20.00); Calcium 9.7 mg/dL (8.7-10.3); Carbon Dioxide 19.5 mmol/L (21.6-31.8); Chloride 105 mmol/L (96-109); Chol/HDL Ratio 4.17 Ratio; Globulin 2.7 g/dL (1.6-3.3); Glucose 99 mg/dL (70-110); Iron 71 UG/DL (50-170); LDL Cholesterol,Calculated 113.5 mg/dL (0.0-131.0); Magnesium 1.8 mg/dL (1.5-2.4); Phosphorus 3.8 mg/dL (2.4-5.1); Potassium 4.1 mmol/L (3.5-5.5); Sodium 138 mmol/L (135-145); Total Bilirubin 0.5 mg/dL (0.3-1.2); Total Iron Binding Capacity 364 UG/DL (228-460)
[2025-03-16 22:48] LABS: Prealbumin 16.3 mg/dL (18.0-42.0)
[2025-03-17 13:09] LABS: Zinc, Serum 94 ug/dL (60-130)
[2025-03-18 05:37] LABS: Vitamin A 32 ug/dL (38-106)
[2025-03-18 10:58] LABS: Vit B1(Thiamine) 42 ug/L (38-122)
[2025-03-19 23:36] LABS: Selenium 129 mcg/L (63-160)
== END ==
LOC: BARWHC3 13:50
PROVIDERS: ATTEND Surgery Plastic and Reconstructive Surgery
DX: E66.01 Morbid (severe) obesity due to excess calories (principal); R11.10 Vomiting, unspecified; E89.1 Postprocedural hypoinsulinemia; D50.8 Other iron deficiency anemias; E44.0 Moderate protein-calorie malnutrition; E45 Retarded development following protein-calorie malnutrition; E55.9 Vitamin D deficiency, unspecified; K91.2 Postsurgical malabsorption, not elsewhere classified; K74.1 Hepatic sclerosis; N19 Unspecified kidney failure; T56.894A Toxic effect of other metals, undetermined, initial encounter; K50.90 Crohn's disease, unspecified, without complications; Z68.36 Body mass index [BMI] 36.0-36.9, adult; Z71.3 Dietary counseling and surveillance; Z98.84 Bariatric surgery status; Z91.030 Bee allergy status; Z91.018 Allergy to other foods; Z88.8 Allergy status to other drugs, medicaments and biological substances
CPT/HCPCS: 80053; 80061; 82306; 82525; 82607; 82728; 82746; 83036; 83540; 83550; 83735; 83970; 84100; 84134; 84255; 84425; 84443; 84590; 84630; 85027; 85610; 85730; 97803; 99211

== ENCOUNTER 2025-03-17 09:58 | Day surgery (SDC) | payer BC ==
--- NOTE | 2025-03-17 07:39 | P.GSHP ---
History of Present Illness H&P Date: 03/17/25 CHIEF COMPLAINT: GERD and dysphagia HISTORY OF PRESENT ILLNESS: The patient is a 44-year-old female who presents reports gastroesophageal reflux disease and dysphagia. Upper endoscopy was offered for further evaluation and management. PAST MEDICAL HISTORY: Please see list. PAST SURGICAL HISTORY: Please see list. MEDICATIONS: Please see list. ALLERGIES: Please see list. SOCIAL HISTORY: No illicit drug use FAMILY HISTORY: No reports of Crohn disease or ulcerative colitis. REVIEW OF ORGAN SYSTEMS: CONSTITUTIONAL: No reports of fevers or chills. GI: Denies any blood in stools or constipation. PHYSICAL EXAM: VITAL SIGNS: Stable GENERAL: Well-developed and pleasant in no acute distress. HEENT: No scleral icterus. Extraocular movements grossly intact. Moist buccal mucosa. NECK: Supple without lymphadenopathy. CHEST: Unlabored respirations. Equal bilateral excursions. CARDIOVASCULAR: Regular rate and rhythm. Distal 2+ pulses. ABDOMEN: Soft, nondistended. MUSCULOSKELETAL: No clubbing, cyanosis, or edema. ASSESSMENT: 1. Gastroesophageal reflux disease 2. Dysphagia PLAN: 1. Recommend proceeding with an upper endoscopy Past Medical History Past Medical History: Asthma, Diabetes Mellitus, Fibromyalgia, GERD/Reflux, Musculoskeletal Disorder, Osteoarthritis (OA) Additional Past Medical History / Comment(s): PCOS, diet controlled diabetes, vision issues rt eye. intermittent sciatic pain, History of Any Multi-Drug Resistant Organisms: None Reported Past Surgical History: Bariatric Surgery, Section, Uterine Ablation Additional Past Surgical History / Comment(s): c-sectionx2, Uterine ablationx3, D&Cx2, COLONOSCOPY/EGD. Gastric bypass 02-14-25 Past Anesthesia/Blood Transfusion Reactions: No Reported Reaction Past Psychological History: No Psychological Hx Reported Smoking Status: Former smoker Past Alcohol Use History: None Reported Additional Past Alcohol Use History / Comment(s): quit smoking 13 yrs. ago, 1ppd 20 yrs. Past Drug Use History: None Reported - Past Family History Mother Family Medical History: Cancer Additional Family Medical History / Comment(s): breast cax2 with mastectomy, lymphatic, uterine and cervical and melanoma, stroke, cerebral palsy Sister(s) Family Medical History: Diabetes Mellitus, Thyroid Disorder Father Additional Family Medical History / Comment(s): Polio as child-muscle disorder from Medications and Allergies Home Medications Medication Instructions Recorded Confirmed Type Acetaminophen Tab [Tylenol Tab] 1,000 mg PO Q6HR PRN #30 tablet 02/14/25 02/23/25 Rx Omeprazole [PriLOSEC] 40 mg PO DAILY #30 cap 02/14/25 02/23/25 Rx Ondansetron Odt [Zofran Odt] 4 mg PO Q8HR PRN #9 tab 02/14/25 02/23/25 Rx Simethicone 40 mg/0.6 ml Drops 40 mg PO PCHS PRN #30 ml 02/14/25 02/23/25 Rx [Mylicon Drops] bisacodyL [Dulcolax] 5 mg PO DAILY PRN #10 tab 02/14/25 02/23/25 Rx ursodioL [Ursodiol] 300 mg PO BID 30 Days #60 capsule 02/14/25 02/23/25 Rx Lactulose [Cephulac] 30 ml PO BID #500 ml 02/18/25 02/23/25 Rx Allergies Allergy/AdvReac Type Severity Reaction Status Date / Time bee venom protein (honey bee) Allergy Anaphylaxis Verified 02/23/25 15:18 diphenhydramine Allergy Rash/Hives Verified 02/23/25 15:18 [From Triaminic Allergy] peach Allergy Anaphylaxis Verified 02/23/25 15:18
[2025-03-17 10:44] VITALS: TEMP 97
[2025-03-17 10:59] LABS: Glucose,Whole Blood 90 mg/dL (70-110)
[2025-03-17] MEDS: LACTATED RINGERS 1,000 ML BAG IV STA (11:00)
[2025-03-17] MEDS: IV FLUID CONTINUATION 1,000 ML IV ONE (11:01)
[2025-03-17] MEDS ORDERED: LIDOCAINE 1% INJ 10MG/ML (20 ML MDV) ONE (11:26)
[2025-03-17] MEDS ORDERED: PROPOFOL 10 MG/ML 20 ML VIAL IV ONE (11:26)
[2025-03-17 12:36] VITALS: BP 119/69; PULSE 64; RESP 16
--- NOTE | 2025-03-17 14:47 | P.PCN ---
Date of Procedure: 03/17/25 Description of Procedure: PREOPERATIVE DIAGNOSIS: Dysphagia. Nausea with vomiting. POSTOPERATIVE DIAGNOSIS: Gastrojejunal stricture without chronic ulcer without perforation Gastric stenosis OPERATION: Esophagogastrojejunoscopy with pyloric balloon dilatation from 2 to 11 mm for gastric stricture SURGEON: Dominga Rizvi MD ANESTHESIA: MAC. INDICATIONS: The patient is a 44-year-old female who presents with new dysphagia, including intractable nausea and vomiting. Benefits and risks of the procedure were described. Informed consent was obtained. DESCRIPTION: The patient was brought into the endoscopy suite and laid in the left lateral decubitus position. After a timeout was confirmed, the procedure was initiated. An Olympus gastroscope was passed along the posterior oropharynx down to the distal esophagus where the squamocolumnar junction was unremarkable. The gastric pouch was entered. A gastrojejunal stricture of 2 mm was found as the adult gastroscope was 9.5 mm in size. A [employer] pyloric balloon dilator was placed through the scope. The scope was reentered for balloon dilation of the gastrojejunal anastomosis of 2 mm. Final insufflation from 8 to 11 mm was performed with a total of 2 minutes. The scope was advanced up to 60 cm from the incisors into the Liz limb. The mucosa of the gastrojejunal anastomosis was intact. No chronic gastrojejunal marginal ulcer was encountered. No full-thickness injury was encountered. The GI tract was desufflated. The patient tolerated the procedure well. FINDINGS: Squamocolumnar junction unremarkable at 37 cm. Stricture of approximately 2 mm encountered. No chronic gastrojejunal ulceration encountered. Successful balloon dilatation to 11 mm. RECOMMENDATIONS: Recommend blenderized diet due to gastric stenosis Repeat upper endoscopy in 3 weeks Plan - Discharge Summary New Discharge Prescriptions: Continue bisacodyL [Dulcolax] 5 mg PO DAILY PRN #10 tab PRN Reason: Constipation Omeprazole [PriLOSEC] 40 mg PO DAILY #30 cap Simethicone 40 mg/0.6 ml Drops [Mylicon Drops] 40 mg PO PCHS PRN #30 ml PRN Reason: Gas Acetaminophen Tab [Tylenol] 1,000 mg PO Q6HR PRN #30 tablet PRN Reason: Pain ursodioL [Ursodiol] 300 mg PO BID 30 Days #60 capsule Ondansetron Odt [Zofran ODT] 4 mg PO Q8HR PRN #9 tab PRN Reason: Nausea Lactulose [Cephulac] 30 ml PO BID #500 ml Discharge Medication List Acetaminophen Tab [Tylenol] 1,000 mg PO Q6HR PRN #30 tablet 02/14/25 [Rx] Omeprazole [PriLOSEC] 40 mg PO DAILY #30 cap 02/14/25 [Rx] Ondansetron Odt [Zofran ODT] 4 mg PO Q8HR PRN #9 tab 02/14/25 [Rx] Simethicone 40 mg/0.6 ml Drops [Mylicon Drops] 40 mg PO PCHS PRN #30 ml 02/14/25 [Rx] bisacodyL [Dulcolax] 5 mg PO DAILY PRN #10 tab 02/14/25 [Rx] ursodioL [Ursodiol] 300 mg PO BID 30 Days #60 capsule 02/14/25 [Rx] Lactulose [Cephulac] 30 ml PO BID #500 ml 02/18/25 [Rx] Follow up Appointment(s[facility]s[place] [facility] [place] [place] - 03/23/25 3:00 pm Patient Instructions/Handouts: *Surgery [facility] - (Anesthesia) Discharge Instructions Outpatient Surgery, Upper Endoscopy (DC), Esophageal Dilation (DC) Activity/Diet/Wound Care/Special Instructions: Liquid diet only for 3 days Discharge Disposition: HOME SELF-CARE
== END 2025-03-17 12:49 | disposition home or self-care (01) ==
LOC: ORWHC2ENDO 09:58
PROVIDERS: ATTEND Surgery Plastic and Reconstructive Surgery
DX: K56.699 Other intestinal obstruction unspecified as to partial versus complete obstruction (principal); K21.9 Gastro-esophageal reflux disease without esophagitis; E11.9 Type 2 diabetes mellitus without complications; J45.909 Unspecified asthma, uncomplicated; Z87.891 Personal history of nicotine dependence; Z98.84 Bariatric surgery status
CPT/HCPCS: 81025; 43245; J2003; J2704; C1726 ×2; 43249

== ENCOUNTER → 2025-03-21 | Outpatient (CLI) | payer BC ==
[~2025-03-21] MED LIST changes: -HEPARIN SODIUM,PORCINE 5,000 UNIT/ML 1 ML VIAL SQ PRN; -ONDANSETRON 4 MG/2 ML VIAL IVP PRN; +SODIUM CHLORIDE 0.9% 250 ML in EMPTY BAG 1 BAG IV PRN; +SODIUM CHLORIDE 0.9% 500 ML 500 ML in EMPTY BAG 1 BAG IV PRN
[2025-03-21 12:56] VITALS: BP 123/85; PULSE 61; RESP 16; TEMP 98
[2025-03-21] MEDS: SODIUM CHLORIDE 0.9% 2,000 ML IV NR (12:56)
== END ==
LOC: PROCWHC3 12:46
PROVIDERS: ATTEND Surgery Plastic and Reconstructive Surgery
DX: E86.0 Dehydration (principal)
CPT/HCPCS: 96360; 96361

== ENCOUNTER → 2025-03-23 | Outpatient (CLI) | payer BC ==
[2025-03-23 15:35] VITALS: BP 116/79; PULSE 61; RESP 16; TEMP 98.2; BMI 36.8
--- NOTE | 2025-03-23 15:59 | P.BASOAP ---
Subjective Progress Note Date: 03/23/25 She feels better. She had fluids. She can keep liquids down. She is not hungry and feeling well. She was struggling with oatmeal. Needs labs. Low Vitamin A. Needs more EGD. Objective - Vital Signs Vital signs: Vital Signs Temp 98.2 F 03/23/25 15:24 Pulse 61 03/23/25 15:24 Resp 16 03/23/25 15:24 BP 116/79 03/23/25 15:24 Pulse Ox FiO2 Intake & Output 03/22/25 03/23/25 03/23/25 18:59 06:59 18:59 Weight 111.584 kg Assessment/Plan Plan: Date: 03/23/25 Initial Weight: 132.477 kg Initial BMI: 43.7 Current Weight: 111.584 kg Current BMI: 36.8 Type of Surgery: Total Volume in Band: Previous Volume: Volume Removed: Volume Added: Band Size:
== END ==
LOC: BARWHC3 14:28
PROVIDERS: ATTEND Surgery Plastic and Reconstructive Surgery
DX: E66.01 Morbid (severe) obesity due to excess calories (principal); Z88.8 Allergy status to other drugs, medicaments and biological substances; Z91.030 Bee allergy status; Z91.018 Allergy to other foods; Z68.36 Body mass index [BMI] 36.0-36.9, adult
CPT/HCPCS: 99211

== ENCOUNTER → 2025-04-15 | Outpatient (CLI) | payer BC ==
[2025-04-15] MEDS: SODIUM CHLORIDE 0.9% 1,000 ML IV ONE (09:40)
[2025-04-15 09:46] VITALS: BP 137/91; PULSE 69; RESP 16; TEMP 98
== END ==
LOC: PROCWHC3 09:23
PROVIDERS: ATTEND Surgery Plastic and Reconstructive Surgery
DX: E86.0 Dehydration (principal)
CPT/HCPCS: 96360

== ENCOUNTER 2025-04-18 06:59 | Day surgery (SDC) | payer BC ==
[2025-04-14 15:22] VITALS: BMI 35.9
[~2025-04-18 06:59] MED LIST changes: +LIDOCAINE 1% (10MG/ML) FOR IV START INTRADERMA PRN; -SODIUM CHLORIDE 0.9% 250 ML in EMPTY BAG 1 BAG IV PRN; -SODIUM CHLORIDE 0.9% 500 ML 500 ML in EMPTY BAG 1 BAG IV PRN
[2025-04-18 07:24] VITALS: TEMP 97.5
[2025-04-18] MEDS: IV FLUID CONTINUATION 1,000 ML IV ONE (07:37)
[2025-04-18] MEDS: LACTATED RINGERS 1,000 ML IV SCH (07:37)
[2025-04-18 07:41] LABS: Glucose,Whole Blood 91 mg/dL (70-110)
--- NOTE | 2025-04-18 08:12 | P.GSHP ---
History of Present Illness H&P Date: 04/18/25 CHIEF COMPLAINT: Esophageal stricture HISTORY OF PRESENT ILLNESS: The patient is a 44-year-old female who presents reports dysphagia. Upper endoscopy was offered for further evaluation and management. PAST MEDICAL HISTORY: Please see list. PAST SURGICAL HISTORY: Please see list. MEDICATIONS: Please see list. ALLERGIES: Please see list. SOCIAL HISTORY: No illicit drug use FAMILY HISTORY: No reports of Crohn disease or ulcerative colitis. REVIEW OF ORGAN SYSTEMS: CONSTITUTIONAL: No reports of fevers or chills. GI: Denies any blood in stools or constipation. PHYSICAL EXAM: VITAL SIGNS: Stable GENERAL: Well-developed and pleasant in no acute distress. HEENT: No scleral icterus. Extraocular movements grossly intact. Moist buccal mucosa. NECK: Supple without lymphadenopathy. CHEST: Unlabored respirations. Equal bilateral excursions. CARDIOVASCULAR: Regular rate and rhythm. Distal 2+ pulses. ABDOMEN: Soft, nondistended. MUSCULOSKELETAL: No clubbing, cyanosis, or edema. ASSESSMENT: 1. Esophageal stricture PLAN: 1. Recommend proceeding with an upper endoscopy with rigid dilators. Past Medical History Past Medical History: Asthma, Diabetes Mellitus, Fibromyalgia, GERD/Reflux, Musculoskeletal Disorder, Osteoarthritis (OA) Additional Past Medical History / Comment(s): PCOS, diet controlled diabetes, vision issues rt eye, intermittent sciatic pain History of Any Multi-Drug Resistant Organisms: None Reported Past Surgical History: Bariatric Surgery, Section, Uterine Ablation Additional Past Surgical History / Comment(s): x2, Uterine ablation x3, D&C x2, COLONOSCOPY/EGD. Gastric bypass 02-14-25, mult. EGD with Dilatation Past Anesthesia/Blood Transfusion Reactions: No Reported Reaction Smoking Status: Never smoker - Past Family History Mother Family Medical History: Cancer Additional Family Medical History / Comment(s): breast cax2 with mastectomy, lymphatic, uterine and cervical and melanoma, stroke, cerebral palsy Sister(s) Family Medical History: Diabetes Mellitus, Thyroid Disorder Father Additional Family Medical History / Comment(s): Polio as child-muscle disorder from Medications and Allergies Home Medications Medication Instructions Recorded Confirmed Type ursodioL [Ursodiol] 300 mg PO BID 30 Days #60 capsule 02/14/25 04/14/25 Rx Omeprazole [PriLOSEC] 40 mg PO DAILY #90 cap 04/04/25 04/14/25 Rx Allergies Allergy/AdvReac Type Severity Reaction Status Date / Time bee venom protein (honey bee) Allergy Anaphylaxis Verified 04/18/25 07:16 peach Allergy Anaphylaxis Verified 04/18/25 07:16 Surgical - Exam Vital Signs Temp Pulse Resp BP Pulse Ox 97.5 F L 75 16 111/76 99 04/18/25 07:23 04/18/25 07:23 04/18/25 07:23 04/18/25 07:23 04/18/25 07:23
[2025-04-18] MEDS ORDERED: PROPOFOL 10 MG/ML 20 ML VIAL IV ONE (08:13)
[2025-04-18] MEDS ORDERED: LIDOCAINE 1% INJ 10MG/ML (20 ML MDV) ONE (08:13)
--- NOTE | 2025-04-18 08:39 | P.PCN ---
Date of Procedure: 04/18/25 Description of Procedure: PREOPERATIVE DIAGNOSIS: Dysphagia Gastric stenosis POSTOPERATIVE DIAGNOSIS: Gastrojejunal stricture without chronic ulcer without perforation Gastric stenosis OPERATION: Esophagogastrojejunoscopy with pyloric balloon dilatation from 12 to 18 mm for gastric stricture SURGEON: Dominga Rizvi MD ANESTHESIA: MAC. INDICATIONS: The patient is a 44-year-old female who presents with new dysphagia, including intractable nausea and vomiting. Benefits and risks of the procedure were described. Informed consent was obtained. DESCRIPTION: The patient was brought into the endoscopy suite and laid in the left lateral decubitus position. After a timeout was confirmed, the procedure was initiated. An Olympus gastroscope was passed along the posterior oropharynx down to the distal esophagus where the squamocolumnar junction was unremarkable. The gastric pouch was entered. A gastrojejunal stricture of 2 mm was found as the adult gastroscope was 9 mm in size. A [employer] pyloric balloon dilator was placed through the scope. The scope was reentered for balloon dilation of the gastrojejunal anastomosis of 8 mm. Final insufflation from 12 to 18 mm was performed with a total of 2 minutes. The scope was advanced up to 60 cm from the incisors into the Liz li mb. The mucosa of the gastrojejunal anastomosis was intact. No chronic gastrojejunal marginal ulcer was encountered. No full-thickness injury was encountered. The GI tract was desufflated. The patient tolerated the procedure well. FINDINGS: Squamocolumnar junction unremarkable at 37 cm. Stricture of approximately 8 mm encountered. No chronic gastrojejunal ulceration encountered. Successful balloon dilatation to 18 mm. Gastric pouch 4 cm RECOMMENDATIONS: Repeat upper endoscopy in 3- 4 weeks Plan - Discharge Summary Discharge Rx Participant: No New Discharge Prescriptions: Continue ursodioL [Ursodiol] 300 mg PO BID 30 Days #60 capsule Omeprazole [PriLOSEC] 40 mg PO DAILY #90 cap Discharge Medication List ursodioL [Ursodiol] 300 mg PO BID 30 Days #60 capsule 02/14/25 [Rx] Omeprazole [PriLOSEC] 40 mg PO DAILY #90 cap 04/04/25 [Rx] Follow up Appointment(s)/Referral(s): [place], [place] [NON-STAFF] - 05/11/25 3:00 pm Patient Instructions/Handouts: Esophageal Dilation (DC) Activity/Diet/Wound Care/Special Instructions: Soft food diet Discharge Disposition: HOME SELF-CARE
[2025-04-18 08:48] VITALS: BP 106/93; PULSE 68; RESP 16
== END 2025-04-18 09:26 | disposition home or self-care (01) ==
LOC: ORWHC2ENDO 06:59
PROVIDERS: ATTEND Surgery Plastic and Reconstructive Surgery
DX: K22.2 Esophageal obstruction (principal); J45.909 Unspecified asthma, uncomplicated; E11.9 Type 2 diabetes mellitus without complications; M79.7 Fibromyalgia; Z98.84 Bariatric surgery status; Z91.030 Bee allergy status
CPT/HCPCS: 81025; 43245; J2003; J2704; C1726